=== PATIENT | female | born 1965 | race Caucasian/White ===

== ENCOUNTER 2016-05-28 22:34 | Emergency (ER) | payer OTHER ==
[~2016-05-28] VITALS: Ht 180.3 cm; Wt 81.8 kg
[~2016-05-28 22:34] MED LIST: AMBIEN5 MG PO; BUPROPION XL150 MG PO; CARDIZEM60 MG PO; LORAZEPAM0.5 MG PO; XANAX0.5 MG PO; ZOLOFT100 MG PO
[2016-05-28 23:12] LABS: EOSINOPHIL (%) 3.9 % (0-5); EOSINOPHIL COUNT 0.3 K/uL (0-0.3); HEMATOCRIT 41.2 % (36.0-46.0); IMMATURE GRANULOCYTE (%) 0.3 % (0.0-0.7); INSTRUMENT ABS NEUTROPHIL CT 3.4 K/uL; LYMPHOCYTE COUNT 2.8 K/uL (1.0-2.8); MCH 28.6 PG (29.0-34.0); MCV 86.6 FL (83-99); MEAN PLAT.VOLUME 9.9 uM^3 (9.5-12.4); MONOCYTE (%) 7.1 % (3-12); MONOCYTE COUNT 0.5 K/uL (0-0.8); NEUTROPHIL (%) 48.6 % (45-76); NEUTROPHIL COUNT 3.4 K/uL (1.8-6.4); PLATELET COUNT 232 K/uL (156-360); RBC DIS.WIDTH-CV 12.4 % (11.8-14.6); RBC DIS.WIDTH-SD 39.6 % (39-53); RED BLOOD COUNT 4.76 M/uL (3.80-5.20)
[2016-05-28 23:24] LABS: CHLORIDE 105 mEq/L (99-109); POTASSIUM 3.8 mEq/L (3.7-5.4); SODIUM 141 mEq/L (136-147)
[2016-05-28 23:27] LABS: GLUCOSE 117 mg/dL (70-99)
[2016-05-28 23:28] LABS: ANION GAP 9 MEQ/L (2-14)
[2016-05-28 23:29] LABS: TOTAL BILIRUBIN 0.3 mg/dL (0.0-1.0)
[2016-05-28 23:30] LABS: ALKALINE PHOSPHATASE 62 IU/L (3-129); GFR ESTIMATE (CALCULATED) > 59 mL/min/
[2016-05-28 23:31] LABS: UREA NITROGEN (BUN) 18 mg/dL (9-23)
[2016-05-28 23:33] LABS: TROP-I INTERPRETATION NEGATIVE; TROPONIN-I < 0.01 ng/mL (0.0-0.30)
[2016-05-29] MEDS ORDERED: BACLOFEN10 MG PO (01:00)
[2016-05-29] MEDS ORDERED: EFFEXOR75 MG PO (01:01)
[2016-05-29] MEDS ORDERED: EFFEXOR37.5 MG PO (01:02)
[2016-05-29 01:37] LABS: TROP-I INTERPRETATION NEGATIVE; TROPONIN-I < 0.01 ng/mL (0.0-0.30)
[2016-05-29 01:49] VITALS: BP 96/57
== END 2016-05-29 01:51 | disposition home or self-care (01) ==
LOC: EME 22:34
PROVIDERS: Emergency Medicine
DX: R07.9 Chest pain, unspecified (principal); F41.1 Generalized anxiety disorder
CPT/HCPCS: 71020; 80053; 84484; 85025; 93005; 99281; 99284